=== PATIENT | male | born 1985 | race Caucasian/White ===

== ENCOUNTER 2025-01-23 08:06 | Emergency (ER) | payer BC, SELFPAY ==
[2025-01-23 08:10] VITALS: BP 120/71
[2025-01-23 09:30] VITALS: BMI 23.3
--- NOTE | 2025-01-23 09:35 | ED.GENMED ---
History of Present Illness
General
Chief Complaint: Fainting/Passed Out
Source: patient and ambulance crew
Exam Limitations: none
Time Seen by Provider: 01/23/25 09:18
Nursing documentation reviewed up to this point in time: agreed with
History of Present Illness
History of Present Illness:
39-year-old male presents emergency department after a syncope episode. He was rinsing his mouth with chlorhexidine and saw his bloody tooth, felt queasy and passed out. He denies hitting his head. He feels well except for some comfort on his
left gluteus. He is able to walk without difficulty. He has had a history of vasovagal syncope in the past.
Past History
Past History
ED Past Medical History: Other (Vasovagal syncope)
ED Past Surgical History: Orthopedic (Left knee ACL reconstruction, left knee meniscus repair) and Other (Dental graft)
Social History
Tobacco: Non-smoker
Alcohol: None
Drug: None
Personal:
Living: with family
Employment: Employed (Radiologist)
Review of Systems
Review of Systems
Allergies reviewed?: Yes
All Other Systems: Not applicable
Constitutional: Reports no symptoms
EENT: Reports no symptoms
Respiratory: Reports no symptoms
Cardiac: Reports syncope; Denies chest pain
ABD/GI: Reports no symptoms
: Reports no symptoms
Musculoskeletal: Reports no symptoms
Skin: Reports no symptoms
Neurological: Reports no symptoms
Endocrine: Reports no symptoms
Hematologic/Lymphatic: Reports no symptoms
Psychiatric: Reports no symptoms
Phy Exam
Physical Exam
Physical Exam:
Physical Exam
General: no apparent distress, not acutely ill
Neck: supple. no meningeal signs. normal posterior pharynx
Heart: s1/s2 regular rate and rhythm, no murmur. equal radial
pulses.
HEENT: Pupils equal round reactive to light, EOMI
Lungs: no acute respiratory distress. clear bilaterally
Abdomen: normal bowel sounds. not tender. no CVAT
Neuro: alert and oriented. no focal neurological deficits cranial nerves II through XII intact
Skin: no rash
Psychiatric: well kept. interactive and cooperative
Extremities: no edema. no calf tenderness. negative homans. good distal pulses
Course
Orders/Labs/Results
Orders:
Orders
01/23/25 08:17
EKG [Electrocardiogram (*1)] Urgent
Reason for Study: Syncope
EKG- Treatment ONCE
Vital Signs
Initial and Last Documented VS:
Initial Vital Signs
Temp Pulse Resp BP Pulse Ox
98.8 F 57 16 120/71 100
01/23/25 08:10 01/23/25 08:10 01/23/25 08:10 01/23/25 08:10 01/23/25 08:10
Last Documented Vital Signs
Temp Pulse Resp BP Pulse Ox
98.8 F 57 16 120/71 100
01/23/25 08:10 01/23/25 08:10 01/23/25 08:10 01/23/25 08:10 01/23/25 09:37
MDM/Problems Addressed
Differential Diagnosis Includes:
Dysrhythmia, injury from fall, vasovagal syncope
MDM/Problems Addressed:
39-year-old male with vasovagal syncope episode, doubt seizure activity. Likely syncope with myoclonus. No postictal period. EKG sinus bradycardia otherwise normal. Patient stable for discharge.
*Pulse Oximetry
SaO2: 100
Oxygen Mode of Delivery: Room air
Patient hypoxic: no
*EKG
Interpreted by ED Provider?: Yes
EKG Intrepretation Date: 01/23/25
EKG Intrepretation Time: 08:19
Interpretation: abnormal
Comparison EKG: no comparison EKG present
Heart Rate: 50
Rate: bradycardiac
Rhythm: sinus
[place]: normal axis
Interval: normal interval
QRS Pattern: normal QRS
Ischemia: no ischemia
*[employer] Officer Interpretation
Rate: bradycardiac
Interpretation: abnormal
Heart Rate: 52
Rhythm: sinus
*Critical Care Note
Total Time (30-74mins, 75-104mins- exclusive of procedures): Not Applicable
Data Reviewed
Further Testing Considered But Not Given:
ct head not indicated
Patient Management
Social determinants of health affecting care: Living situation and Strong social support
Escalation/DeEscalation of care consider admission/obs:
admit not indicated
ED Attending Note
-
Portions of this chart may have been created with voice recognition software.� Occasional wrong word or��sound alike� substitutions may have occurred due to the inherent limitations of voice recognition software.
Discharge Plan
Departure
Patient Disposition: Home (Routine Discharge)
Date of Disposition: 01/23/25
Time of Disposition: 09:45
Patient with high blood pressure during this ER visit?: No
Condition: Good
Discharge Problem:
Syncope
Instructions: Syncope (Fainting) (DC)
Activity Restrictions/Additional Instructions:
Follow up with primary care. Return for any concerns.
Interventions
Interventions:
*Risk Screen - Suicide Last Done: 01/23/25 08:10
*General Assessment Last Done: 01/23/25 09:30
*Neglect/Abuse Screening Last Done: 01/23/25 08:10
*ED- Fall Risk Assessment Last Done: 01/23/25 09:30
*ED COVID-19 Vaccine History Last Done: 01/23/25 08:10
*Nursing Disposition Last Done: 01/23/25 09:54
ED- Cardiac Assessment Last Done: 01/23/25 09:30
ED- Neurological Assessment Last Done: 01/23/25 09:30
Discharge Date and Time
Discharge Date/Time: 01/23/25 09:50
Print Language: [place]
== END 2025-01-23 09:50 | disposition home or self-care (01) ==
LOC: EMR 08:06
PROVIDERS: EMERGENCY PHYSICIAN Emergency Medicine
DX: R55 Syncope and collapse (principal)
CPT/HCPCS: 99283; 93005